=== PATIENT | female | born 1945 | race Caucasian/White ===

== ENCOUNTER → 2017-04-05 | Outpatient (CLI) | payer BC ==
[~2017-04-05] MED LIST: ACET325T96 PO; ALBU1AER9 INH; CETI10TA84 PO; CHOL2000 PO; CLOT10TR2 MT; FLUT0.15; FLUT1INH INH; FSMD/70 PO; LOSA50TA6 PO; SALI0.658 NAE; TIOTCAP INH; TRAM-10 PO
[2017-04-05 13:09] LABS: ALT/SGPT 31 U/L (12-78); AST/SGOT 20 U/L (15-37); BLOOD UREA NITROGEN 11 mg/dl (7-18); BUN/CREATININE RATIO 17.8 (10-20); CALCIUM 9.1 mg/dl (8.5-10.1); CARBON DIOXIDE 30 mmol/L (21-32); CHLORIDE 94 mmol/L (98-107); CHOLESTEROL 191 mg/dl (0-200); CREATININE 0.62 mg/dl (0.60-1.20); GLUCOSE 106 mg/dl (70-99); POTASSIUM 3.9 mmol/L (3.5-5.1); SODIUM 130 mmol/L (136-145)
[2017-04-05 13:12] LABS: ALB/GLOB RATIO 1.1 (0.9-2); ALKALINE PHOSPHATASE 79 U/L (45-117); CHOLESTEROL/HDL RATIO 1.8; HDL CHOLESTEROL 108 mg/dl; LDL CHOLESTEROL CALCULATED 73 mg/dl; TRIGLYCERIDES 52 mg/dl (0-150); VERY LOW DENSITY LIPOPROT CALC 10 mg/dl
== END | disposition home or self-care (01) ==
LOC: C.LABBFT 09:31
PROVIDERS: ATTEND Nurse Practitioner
DX: R73.01 Impaired fasting glucose (principal); M81.0 Age-related osteoporosis without current pathological fracture

== ENCOUNTER → 2017-04-18 | Outpatient (CLI) | payer BC | END | disposition home or self-care (01) | LOC: C.LABBFT 10:26 | PROVIDERS: ATTEND Nurse Practitioner | DX: D47.2 Monoclonal gammopathy (principal) ==

== ENCOUNTER → 2017-05-16 | Outpatient (CLI) | payer BC ==
--- NOTE | 2017-05-16 10:42 | DIAGNOSTIC IMAGING REPORT ---
BILATERAL CAROTID DOPPLER STUDY HISTORY: R09.89 Carotid bruit prefers AM appointment, not [id number] COMPARISON: None. TECHNIQUE: Real-time, grayscale, and color Doppler sonography of the carotid arteries was performed. Imaging reviewed in the transverse and longitudinal planes. All measurements were calculated based on NASCET criteria. FINDINGS: Antegrade flow is seen in the bilateral vertebral arteries. The brachial pressures are hemodynamically similar. Moderate plaque formation bilaterally The peak systolic velocity within the right ICA is 76. The right systolic ratio is 1.3. The peak systolic velocity within the left ICA is 82. The left systolic ratio is 1.4. IMPRESSION: No hemodynamically significant stenosis seen within the carotid arteries. Electronically signed by: Maico Sigala M.D. 05/16/2017 10:41 AM Dictated Date/Time: 05/16/2017 10:41 AM
== END | disposition home or self-care (01) ==
LOC: C.ULTR 09:32
PROVIDERS: ATTEND Nurse Practitioner
DX: R09.89 Other specified symptoms and signs involving the circulatory and respiratory systems (principal)

== ENCOUNTER → 2017-05-16 | Outpatient (CLI) | payer BC | END | disposition home or self-care (01) | LOC: C.MAMM 08:52 | PROVIDERS: ATTEND Nurse Practitioner | DX: M85.851 Other specified disorders of bone density and structure, right thigh (principal); M85.852 Other specified disorders of bone density and structure, left thigh; R09.89 Other specified symptoms and signs involving the circulatory and respiratory systems ==

== ENCOUNTER → 2017-07-11 | Outpatient (CLI) | payer BC ==
--- NOTE | 2017-07-11 11:23 | DIAGNOSTIC IMAGING REPORT ---
LUMBAR SPINE 5 VIEWS HISTORY: M51.36 Disc degeneration, [id number] Acute low back [id number] COMPARISON: None. FINDINGS: There is no fracture. No subluxation. Dextroscoliosis of the thoracolumbar spine. Moderate facet degenerative changes throughout the spine. Moderate disc space narrowing at L1-L2, L2-L3, L3-L4. IMPRESSION: No fracture or subluxation within the lumbar spine. Moderate degenerative changes as described above. Electronically signed by: Eloy Pizarro M.D. 07/11/2017 11:22 AM Dictated Date/Time: 07/11/2017 11:20 AM
== END | disposition home or self-care (01) ==
LOC: C.RAD1850 10:14
PROVIDERS: ATTEND Internal Medicine Rheumatology
DX: M51.36 Other intervertebral disc degeneration, lumbar region (principal)

== ENCOUNTER → 2017-10-17 | Outpatient (CLI) | payer BC ==
[2017-10-17 17:04] LABS: ALT/SGPT 30 U/L (12-78); AST/SGOT 20 U/L (15-37); BLOOD UREA NITROGEN 10 mg/dl (7-18); BUN/CREATININE RATIO 15.1 (10-20); CALCIUM 9.4 mg/dl (8.5-10.1); CARBON DIOXIDE 30 mmol/L (21-32); CHLORIDE 95 mmol/L (98-107); CREATININE 0.65 mg/dl (0.60-1.20); GLUCOSE 92 mg/dl (70-99); POTASSIUM 3.9 mmol/L (3.5-5.1); SODIUM 133 mmol/L (136-145)
[2017-10-17 17:07] LABS: ALB/GLOB RATIO 0.9 (0.9-2); ALKALINE PHOSPHATASE 70 U/L (45-117); CHOLESTEROL 200 mg/dl (0-200); CHOLESTEROL/HDL RATIO 1.8; HDL CHOLESTEROL 114 mg/dl; LDL CHOLESTEROL CALCULATED 67 mg/dl; TRIGLYCERIDES 95 mg/dl (0-150); VERY LOW DENSITY LIPOPROT CALC 19 mg/dl
[2017-10-18 07:39] LABS: ESTIMATED AVERAGE GLUCOSE 117 mg/dl; HA1C FLAG Normal (Normal)
== END | disposition home or self-care (01) ==
LOC: C.LABBFT 12:35
PROVIDERS: ATTEND Nurse Practitioner
DX: R73.01 Impaired fasting glucose (principal); D47.2 Monoclonal gammopathy

== ENCOUNTER → 2018-04-02 | Outpatient (CLI) | payer BC ==
[~2018-04-02] MED LIST changes: +ACET-1693 PO; -ACET325T96 PO
--- NOTE | 2018-04-02 11:11 | DIAGNOSTIC IMAGING REPORT ---
CHEST 2 VIEWS ROUTINE CLINICAL HISTORY: 72 years-old Female presenting with J44.9. TECHNIQUE: PA and lateral views of the chest were obtained. COMPARISON: 06/24/2016. FINDINGS: Atherosclerosis of the aortic arch. Cardiac silhouette normal in size. Main pulmonary artery prominence, unchanged. Heterogeneity of lung parenchyma. Bronchial wall thickening may be present. Lungs are mildly hyperinflated. No focal opacity. No large effusion or pneumothorax. Osseous structures normal. Upper abdomen normal. IMPRESSION: 1. Findings suggest emphysema. No focal infiltrate to suggest pneumonia. 2. Main pulmonary artery enlargement could suggest underlying pulmonary arterial hypertension. Electronically signed by: Gabino Pierre M.D. 04/02/2018 11:10 AM Dictated Date/Time: 04/02/2018 11:08 AM
== END | disposition home or self-care (01) ==
LOC: C.RAD1850 10:42
PROVIDERS: ATTEND Internal Medicine Pulmonary Disease
DX: J44.9 Chronic obstructive pulmonary disease, unspecified (principal); I77.89 Other specified disorders of arteries and arterioles

== ENCOUNTER → 2018-04-17 | Outpatient (CLI) | payer BC ==
[2018-04-17 12:19] LABS: BASO % 0.7 %; BASO ABS # 0.05 K/uL (0-0.2); EOS % 2.7 %; EOS ABS # 0.19 K/uL (0-0.5); HEMATOCRIT 39.4 % (37-47); HEMOGLOBIN 13.8 g/dL (12.0-16.0); IG# 0.02 K/uL (0.00-0.02); LYMPH % 20.8 %; LYMPH ABS # 1.45 K/uL (1.2-3.4); MEAN CELL VOLUME 92.1 fL (80-100); MEAN CORPUSCULAR HEMOGLOBIN 32.2 pg (25-34); MEAN PLATELET VOLUME 9.1 fL (7.4-10.4); MONO % 8.5 %; MONO ABS # 0.59 K/uL (0.11-0.59); NEUT ABS # 4.66 K/uL (1.4-6.5); PLATELET COUNT 311 K/uL (130-400); RED CELL DISTRIBUTION WIDTH CV 14.3 % (11.5-14.5); RED CELL DISTRIBUTION WIDTH SD 47.9 fL (36.4-46.3); WHITE BLOOD COUNT 6.96 K/uL (4.8-10.8)
[2018-04-17 12:37] LABS: ALBUMIN 3.7 gm/dl (3.4-5.0); ALKALINE PHOSPHATASE 66 U/L (45-117); ALT/SGPT 26 U/L (12-78); AST/SGOT 22 U/L (15-37); BLOOD UREA NITROGEN 17 mg/dl (7-18); CALCIUM 9.2 mg/dl (8.5-10.1); CARBON DIOXIDE 31 mmol/L (21-32); CREATININE 0.72 mg/dl (0.60-1.20); GLUCOSE 93 mg/dl (70-99); POTASSIUM 4.1 mmol/L (3.5-5.1); SODIUM 129 mmol/L (136-145); TOTAL PROTEIN 7.8 gm/dl (6.4-8.2)
== END | disposition home or self-care (01) ==
LOC: C.LABBFT 09:39
PROVIDERS: ATTEND Nurse Practitioner
DX: D47.2 Monoclonal gammopathy (principal); R73.01 Impaired fasting glucose; M81.0 Age-related osteoporosis without current pathological fracture